=== PATIENT | female | born 1940 | race Caucasian/White ===

== ENCOUNTER 2019-12-25 15:54 | Inpatient (IN) | payer MEDICARE ==
[~2019-12-25] VITALS: Ht 152.4 cm; Wt 63.0 kg
[2019-12-25 18:28] VITALS: BP 134/74
[2019-12-25 19:04] LABS: BASOPHILS 0.2 % (0-2); EOSINOPHILS 0.2 % (0-7); HEMATOCRIT 42.5 % (36.0-48.0); HEMOGLOBIN 13.8 g/dL (12-16); IMMATURE GRANULOCYTES 0.3 % (0-5); LYMPHOCYTES 8.1 % (15-50); MCH 30.9 pg (26.0-34.0); MCHC 32.5 g/dL (31.0-37.0); MCV 95.3 fL (80.0-100.0); MEAN PLATELET VOLUME 9.8 fL (7.4-10.4); MONOCYTES 5.1 % (2-11); NEUTROPHILS 86.1 % (40-80); PLATELET COUNT 294 10x3/uL (130-400); RBC 4.46 10x6/uL (4.00-5.40); RDW 13.6 % (11.5-14.5); WBC 12.6 10x3/uL (4.8-10.8)
[2019-12-25 19:16] LABS: ANION GAP 15.8 mmol/L (8-16); CALCIUM 8.9 mg/dL (8.5-10.1); CARBON DIOXIDE 23.3 mmol/L (21.0-32.0); CREATININE - SERUM 0.8 mg/dL (0.6-1.3); POTASSIUM - SERUM 4.1 mmol/L (3.5-5.1)
[2019-12-25 19:23] LABS: APTT 26.5 SECONDS (22.8-39.4); INR 1.01 (0.85-1.17); PROTIME 13.2 SECONDS (11.6-15.0)
[2019-12-25 19:25] LABS: ALBUMIN 4.2 g/dL (3.4-5.0); BILIRUBIN - TOTAL 0.43 mg/dL (0.2-1.3); PROTEIN - SERUM 7.7 g/dL (6.4-8.2)
--- NOTE | 2019-12-25 19:45 | NUR ---
NOTIFIED RESP OF RESP MEDS. STATED WILL ADMIN WHEN TRANSFERRED TO THE FLOOR.
--- NOTE | 2019-12-25 20:05 | NUR ---
CALLED TO GIVE REPORT, NURSE WILL RETURN CALL.
--- NOTE | 2019-12-25 20:16 | NUR ---
REPORT GIVEN TO GREGORY LUNA.
[2019-12-25 20:48] VITALS: BP 148/70; BMI 27.3
[2019-12-25] MEDS ORDERED: NORVASC5 MG PO (21:12)
[2019-12-25] MEDS ORDERED: ZOCOR40 MG PO (21:12)
--- NOTE | 2019-12-25 22:25 | NUR ---
ASSISTED PATIENT TO AND FROM RESTROOM. PATIENT GAIT STEADY. COLLECTED URINE PER ORDERS. PATIENT VOIDED 100ML AT THIS TIME. PATIENT DENIES OTHER NEEDS. WILL CONTINUE TO MONITOR.
--- NOTE | 2019-12-25 23:32 | NUR ---
REC'D PATIENT TO FLOOR FROM ER. PATIENT'S LEFT ARM IN SPLINT WITH IVELISSE WRAP. COMPLETED ASSESSMENT. PATIENT HAS NO S/S OF DISTRESS. CHG BATH COMPLETED. SCD'S PLACED ON PATIENT AND EDUCATION PROVIDED. GAVE PATIENT IS AND EXPLAINED USE, PATIENT COMPLETED CORRECT DEMONSTRATION. PATIENT HAS NON SLIP SOCKS, CALL LIGHT WITHIN REACH, AND BED ALARM ON. ENCOURAGED THE PATIENT TO CALL IF SHE HAS NEEDS. WILL CONTINUE TO MONITOR.
[2019-12-25 23:36] LABS: BILIRUBIN NEGATIVE (NEGATIVE); KETONE SMALL mg/dL (NEGATIVE); NITRITE NEGATIVE (NEGATIVE); UROBILINOGEN NORMAL mg/dL (< 2)
[2019-12-25 23:38] LABS: BACTERIA MODERATE HPF (NONE SEEN); EPITHELIAL CELLS 0-5 /hpf (0-5); GRANULAR CAST OCC LPF (NONE SEEN); WHITE CELLS - URINE 0-5 HPF (0-4)
[2019-12-26 00:32] VITALS: BP 131/67
[2019-12-26 04:40] VITALS: BP 132/55
[2019-12-26 05:26] LABS: BASOPHILS 0.3 % (0-2); EOSINOPHILS 1.8 % (0-7); HEMATOCRIT 38.3 % (36.0-48.0); IMMATURE GRANULOCYTES 0.1 % (0-5); LYMPHOCYTES 19.5 % (15-50); MCH 30.7 pg (26.0-34.0); MCHC 31.3 g/dL (31.0-37.0); MEAN PLATELET VOLUME 9.5 fL (7.4-10.4); MONOCYTES 11.9 % (2-11); NEUTROPHILS 66.4 % (40-80); PLATELET COUNT 277 10x3/uL (130-400); RBC 3.91 10x6/uL (4.00-5.40); RDW 13.8 % (11.5-14.5)
[2019-12-26 05:45] LABS: WBC 7.4 10x3/uL (4.8-10.8)
[2019-12-26 06:06] LABS: ALBUMIN 3.5 g/dL (3.4-5.0); ANION GAP 10.2 mmol/L (8-16); BILIRUBIN - TOTAL 0.39 mg/dL (0.2-1.3); CALCIUM 8.2 mg/dL (8.5-10.1); CARBON DIOXIDE 29.2 mmol/L (21.0-32.0); CREATININE - SERUM 1.1 mg/dL (0.6-1.3); MAGNESIUM - SERUM 2.1 mg/dL (1.8-2.4); POTASSIUM - SERUM 3.4 mmol/L (3.5-5.1); PROTEIN - SERUM 6.7 g/dL (6.4-8.2)
[2019-12-26 07:28] VITALS: BP 140/67
--- NOTE | 2019-12-26 08:02 | NUR ---
AWAKE AND ALERT. ORIENTED X3. NO C/O AT THIS TIME. LUNGS ARE CLEAR BILATERALLY, NO COUGH NOTED. INSTRUCTED IN USE OF IS WITH RETURN DEMONSTRATION. SKIN INTACT WITHOUT REDNESS. IV TO RIGHT HAND PATENT WITHOUT REDNESS AT INSERTION SITE. DENIES NEEDS. NPO FOR SURGERY AT THIS TIME.
--- NOTE | 2019-12-26 08:50 | NUR ---
REQUESTED AND GIVEN 4MG MORPHINE WITH 4MG ZOFRAN SLOW IVP FOR C/O LEFT WRIST PAIN LEVEL 9. WILL MONITOR.
[2019-12-26 11:04] VITALS: Ht 152.4 cm; Wt 63.0 kg
[2019-12-26 11:30] VITALS: BP 116/46
--- NOTE | 2019-12-26 12:00 | NUR ---
GETTING ANXIOUS FOR SURGERY TO HURRY ALONG. DENIES NEEDS. REPORTS PAIN IMPROVED AT THIS TIME.
--- NOTE | 2019-12-26 12:53 | MORECARE ---
CASE MANAGEMENT DISCHARGE SUMMARY PATIENT: JAKOB ACEVEDO UNIT: [id number] ADM DATE: 12/25/19 AGE: 79 : 42 SEX: F ROOM/BED: D.1212 AUTHOR: CLAIRE EATON PHYSICIAN: REFERRING PHYSICIAN: TRICIA HERNANDEZ DO DATE OF SERVICE: 12/26/19 Discharge Plan Patient Name: JAKOB ACEVEDO [facility] [facility] 1940 Planned Disposition: Home Anticipated Discharge Date: Discharge Date: Expected LOS: Initial Reviewer: [email or web address] Initial Review Date: 12/25/2019 Generated: 12/26/19 1:53 pm Patient Name: JAKOB ACEVEDO Page [phone] at 1253 All edits/amendments must be made on the electronic document DICTATION DATE: 12/26/19 1253 BASKET SORTER: MARIBEL 12/26/19 1253 RPT#: [id number] DC DATE: STATUS: ADM IN [facility] [address] [place] [address] END OF REPORT
--- NOTE | 2019-12-26 14:30 | NUR ---
UP TO BR WITH ONE PERSON ASSIST. VOIDED 200CC CLEAR YELLOW URINE WITHOUT DIFFICULTY. MAGGIE CARE PER SELF. DENIES NEEDS. REPOSITIONED IN BED FOR COMFORT.
--- NOTE | 2019-12-26 16:09 | NUR ---
OFF FLOOR VIA BED FOR SURGERY.
[2019-12-26 18:42] VITALS: BP 152/64
[2019-12-26 20:00] VITALS: BP 130/76
--- NOTE | 2019-12-26 20:00 | NUR ---
PT IS RESTING WELL. SHE HAS NO C/O. LEFT WRIST WRAPPED IN IVELISSE BANDAGE S/P ORIF OF LEFT RADIUS. IV IN RIGHT HAND. O2 AT 4 L VIA NC. IS GONE FOR THE NIGHT. NO C/O OR NEEDS
[2019-12-27] VITALS: BP 125/51
--- NOTE | 2019-12-27 | NUR ---
PT WAKED UP WHEN VS BEING RECORDED. SHE HAS NO PROB. OR C/O. SHE IS SIPPING WATER. NO N/V AND NO C/O PAIN
[2019-12-27 04:00] VITALS: BP 120/54
[2019-12-27 07:25] LABS: BASOPHILS 0 % (0-2); EOSINOPHILS 0 % (0-7); HEMATOCRIT 35.4 % (36.0-48.0); HEMOGLOBIN 10.8 g/dL (12-16); IMMATURE GRANULOCYTES 0.1 % (0-5); LYMPHOCYTES 6.1 % (15-50); MCH 30.3 pg (26.0-34.0); MCHC 30.5 g/dL (31.0-37.0); MCV 99.2 fL (80.0-100.0); NEUTROPHILS 84.8 % (40-80); PLATELET COUNT 245 10x3/uL (130-400); RBC 3.57 10x6/uL (4.00-5.40); RDW 13.9 % (11.5-14.5); WBC 7.5 10x3/uL (4.8-10.8)
[2019-12-27 07:54] LABS: ALKALINE PHOSPHATASE 35 U/L (30-120); ALT (SGPT) 18 U/L (10-68); BILIRUBIN - TOTAL 0.22 mg/dL (0.2-1.3); CALCIUM 7.9 mg/dL (8.5-10.1); CHLORIDE - SERUM 104 mmol/L (98-107); MAGNESIUM - SERUM 2.1 mg/dL (1.8-2.4); PROTEIN - SERUM 6.3 g/dL (6.4-8.2); SODIUM 136 mmol/L (136-145); UREA NITROGEN 16 mg/dL (7-18)
[2019-12-27 07:55] LABS: CALC OSMOLALITY 276 mosm/kg (275-300); CREATININE - SERUM 0.7 mg/dL (0.6-1.3); GLUCOSE 167 mg/dL (74-106); POTASSIUM - SERUM 4.4 mmol/L (3.5-5.1); eGFR NON AFRICAN AMERICAN 86 mL/min (90-120)
[2019-12-27] MEDS ORDERED: HYDROCODON-ACE1 EAC7 PO (08:55)
--- NOTE | 2019-12-27 08:58 | OP ---
PATIENT NAME: GLO MAURO MEDICAL RECORD: [id number] :44 LOCATION:D. D.1212 ADMISSION DATE:12/25/19 SURGEON: GREGORY BRAGG DO DATE OF OPERATION: 12/26/2019 PROCEDURE PERFORMED: Left distal radius open reduction internal fixation. PREOPERATIVE DIAGNOSIS: Left distal radius and ulna fracture. POSTOPERATIVE DIAGNOSIS: Left distal radius and ulna fracture. INDICATIONS: Ms. Glo Mauro is a 79-year-old female who fell yesterday and sustained a distal radius and ulna fracture, distal ulnar styloid. It was not enough to fix. I informed her of the risks including malunion, nonunion, infection, bleeding, damage to nerves and vessels in the area, continued pain, delayed healing, failure of implants and need for further surgery. She is okay with all that and signed the consent. SURGEON: Gregory Bragg DO DESCRIPTION OF PROCEDURE: The patient was taken to the operative suite, laid in supine position, given general anesthetic. After given a block by anesthesia in the preoperative area, given a gram of Ancef preoperatively as well. She was sedated and LMA was placed. The left upper extremity was then prepped and draped in sterile fashion. Timeout was performed. Everyone was in agreement with the correct site, side, patient, and procedure. I then exsanguinated the left upper extremity with an Esmarch and the tourniquet was inflated to 250 mmHg, was up for 36 minutes. I then began by making careful dissection down to the flexor carpi radialis tendon. Careful dissection down further through the tendon sheath dorsally to the distal radius fracture. Fracture was cleaned off and reduced and held in position with K wires. I then put on the Acumed plate. Once this was in appropriate position, I put a shaft screw in so we could slide the plate distal or proximal. I did need to slide a little proximal on the x-ray and then put in distal locking screws and two into the styloid and with a variable angle. The intra-articular split was through the styloid. I then put 2 more locking screws in the shaft, I then got x-rays and there was an adequate reduction and good position. The tourniquet was then let down and the site was irrigated and then Izablela Lindsay, certified surgical first aid teacher student, and I closed the skin with 3-0 Vicryl in inverted interrupted fashion and placed the Prineo glue on the skin and then placed Adaptic, 4 x 4, cast padding and a volar splint secured with an Ehsan wrap on the patient. She was then awakened and taken to recovery in stable condition. Tourniquet was let down at 36 minutes. BLOOD LOSS: Minimal. COMPLICATIONS: None. TRANSINT:[id number] Voice Confirmation ID: [id number] DOCUMENT ID: [id number] OPERATIVE REPORT [id number] GLO MAURO MICHAEL D, DO at 0858 CC: [id number] DICTATION DATE: 12/26/191816 DRIER ATTENDANT: 12/27/19 0310 ADM IN [facility] [id number] [place] [address]
[2019-12-27 09:26] VITALS: BP 154/54
--- NOTE | 2019-12-27 09:53 | NUR ---
PT ALERT X 4. EXPIRATORY WHEEZES TO ALL PRAKASH, 5L O2 PER NC. IV TO RIGHT HAND, PATENT, DRESSING CDI. IVELISSE TO LEFT FOREARM CDI. PT REPORTING PAIN OF 3/10, WILL CONTINUE TO MONITOR. BED LOW, CALL LIGHT IN REACH. NO OTHER NEEDS AT THIS TIME.
--- NOTE | 2019-12-27 10:15 | MORECARE ---
CASE MANAGEMENT DISCHARGE SUMMARY PATIENT: JAKOB MAURO UNIT: [id number] ADM DATE: 12/25/19 AGE: 79 : 42 SEX: F ROOM/BED: D.1212 AUTHOR: UMADOC PHYSICIAN: REFERRING PHYSICIAN: TRICIA HERNANDEZ DO DATE OF SERVICE: 12/27/19 Discharge Plan Patient Name: JAKOB MAURO Facility: [facility]:[place] : 1940 Planned Disposition: Home Anticipated Discharge Date: 12/27/19 Discharge Date: Expected LOS: 2 Initial Reviewer: [email or web address] Initial Review Date: 12/25/2019 Generated: 12/27/19 11:14 am Comments DCP- Discharge Planning Updated by [email or web address]: Melinda Vivar on 12/27/19 9:[address] CM met with patient to discuss initial discharge planning. Patient is in agreement to proceed. Patient reports that She lives at home, independently with her , Dm Mauro ([phone]). Patient is in [place], on [place] with her family. Patient is alert/oriented. PCP: Dr. Tracy Rodriguez, [facility]. Pharmacy: [facility]. Patient states she has been able to obtain all of her prescribed medications. HHS: None. DME: Home O2, portable O2, walker, w/c, grab bars. Patient gives permission to speak with family members/care givers. 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 CM discussed the availability of HH, Rehab, SNF, OP Therapy, DME services. Patient denies the need for additional services at this time and feels safe returning to previous environment. Patient denies hospitalization within the past 30 days. 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 Transportation at time of discharge: Spouse, Dm. CM will follow and assist PRN with DC needs. DCPIA - Discharge Planning Initial Assessment Updated by [email or web address]: Melinda Vivar on 12/27/19 10:14 am * Is the patient Alert and Oriented? Yes * PCP Dr. Tracy Rodriguez * Pharmacy [facility], [address] [facility] * Preadmission Environment Home with Family * ADLs Independent * Equipment Grab Bars Oxygen Rolling Walker Shower Chair Tub Bench Walker Wheelchair * Other Equipment Portable O2 * List name and contact numbers for known caregivers / representatives who currently or will assist patient after discharge: Dm Mauro (spouse) [phone] * Verbal permission to speak to the caregivers and representatives has been obtained from the patient. Yes * Community resources currently utilized None * Please name any agencies selected above. NA * Additional services required to return to the preadmission environment? No * Can the patient safely return to the preadmission environment? Yes * Has this patient been hospitalized within the prior 30 days at any hospital? No Last DP export: 12/26/19 11:53 a Patient Name: JAKOB MAURO Page [phone] at 1015 All edits/amendments must be made on the electronic document DICTATION DATE: 12/27/19 1014 WINDOWS ADMINISTRATOR: MARIBEL 12/27/19 1014 RPT#: [id number] DC DATE: STATUS: ADM IN [facility] [address] [place] [address] END OF REPORT
--- NOTE | 2019-12-27 15:01 | NUR ---
PT AGGITATED. DR. BRAGG HAS TOLD PT SHE IS DISCHARGED, HE IS NOT ADMITT[facility] SO WE CAN GET DISCHARGE ORDER FROM THEM. PLACED CALL TO DR. HUDSON, AWAITING HIS ORDERS
--- NOTE | 2019-12-27 16:36 | NUR ---
DISCHARGE PAPERWORK SIGNED, ALL QUESTIONS ANSWERED. ESCORTED OUT VIA WHEELCHAIR.
--- NOTE | 2019-12-27 17:08 | MORECARE ---
CASE MANAGEMENT DISCHARGE SUMMARY PATIENT: JAKOB MAURO UNIT: [id number] ADM DATE: 12/25/19 AGE: 79 : 42 SEX: F ROOM/BED: D.1212 AUTHOR: UMADOC PHYSICIAN: REFERRING PHYSICIAN: TRICIA HERNANDEZ DO DATE OF SERVICE: 12/27/19 Discharge Plan Patient Name: JAKOB MAURO Facility: [facility]:[place] : 1940 Planned Disposition: Home Anticipated Discharge Date: 12/27/19 Discharge Date: 12/27/2019 Expected LOS: 2 Initial Reviewer: [email or web address] Initial Review Date: 12/25/2019 Generated: 12/27/19 6:07 pm Comments DCP- Discharge Planning Updated by [email or web address]: Melinda Vivar on 12/27/19 9:[address] CM met with patient to discuss initial discharge planning. Patient is in agreement to proceed. Patient reports that She lives at home, independently with her , Dm Mauro ([phone]). Patient is in [place], on vacation with her family. Patient is alert/oriented. PCP: Dr. Tracy Rodriguez, [facility]. Pharmacy: [facility]. Patient states she has been able to obtain all of her prescribed medications. HHS: None. DME: Home O2, portable O2, walker, w/c, grab bars. Patient gives permission to speak with family members/care givers. 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 CM discussed the availability of HH, Rehab, SNF, OP Therapy, DME services. Patient denies the need for additional services at this time and feels safe returning to previous environment. Patient denies hospitalization within the past 30 days. 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 Transportation at time of discharge: Spouse, Dm. CM will follow and assist PRN with DC needs. DCPIA - Discharge Planning Initial Assessment Updated by [email or web address]: Melinda Vivar on 12/27/19 10:14 am * Is the patient Alert and Oriented? Yes * PCP Dr. Tracy Rodriguez * Pharmacy [facility], [address] [facility] * Preadmission Environment Home with Family * ADLs Independent * Equipment Grab Bars Oxygen Rolling Walker Shower Chair Tub Bench Walker Wheelchair * Other Equipment Portable O2 * List name and contact numbers for known caregivers / representatives who currently or will assist patient after discharge: Dm Mauro (spouse) [phone] * Verbal permission to speak to the caregivers and representatives has been obtained from the patient. Yes * Community resources currently utilized None * Please name any agencies selected above. NA * Additional services required to return to the preadmission environment? No * Can the patient safely return to the preadmission environment? Yes * Has this patient been hospitalized within the prior 30 days at any hospital? No Last DP export: 12/27/19 9:15 a Patient Name: JAKOB MAURO Page [id number] at 1708 All edits/amendments must be made on the electronic document DICTATION DATE: 12/27/191706 TRANSPLANT REGISTERED NURSE: MARIBEL 12/27/191706 RPT#: [id number] DC DATE:12/27/19 STATUS: DIS IN [facility] [address] [place] [address] END OF REPORT
== END 2019-12-27 16:36 | disposition home or self-care (01) | DRG 511 ==
LOC: D.ER 15:54 → D.M3 18:38
PROVIDERS: Family Medicine; Orthopaedic Surgery; ADMIT Family Medicine; ATTEND Family Medicine
PROC: 0PSL04Z Reposition Left Ulna with Internal Fixation Device, Open Approach (ICD-10-PCS; 2019-12-26)
PROC: 0PSJ04Z Reposition Left Radius with Internal Fixation Device, Open Approach (ICD-10-PCS; principal; 2019-12-26 18:00)
DX: S52.512A Displaced fracture of left radial styloid process, initial encounter for closed fracture (principal); J96.11 Chronic respiratory failure with hypoxia; S52.202A Unspecified fracture of shaft of left ulna, initial encounter for closed fracture; W19.XXXA Unspecified fall, initial encounter; J44.9 Chronic obstructive pulmonary disease, unspecified; I10 Essential (primary) hypertension; E78.5 Hyperlipidemia, unspecified; Z87.891 Personal history of nicotine dependence